=== PATIENT | male | born 1985 | race Caucasian/White ===

== ENCOUNTER 2017-08-18 05:12 | Day surgery (SDC) | payer BC, OTHER ==
[2017-08-16 08:42] VITALS: BP 128/83
[~2017-08-18] VITALS: Ht 193 cm; Wt 131.0 kg
[~2017-08-18 05:12] MED LIST: No meds per pt.
[2017-08-18] MEDS ORDERED: LACTATED RINGERS 1,000 ML IV SCH (05:53)
[2017-08-18 05:54] VITALS: BP 128/83
[2017-08-18] MEDS ORDERED: LIDOCAINE-MPF 1%, 2ML ONE (05:59)
[2017-08-18] MEDS ORDERED: LIDOCAINE-MPF 1%, 2ML INFIL ONE (06:00)
[2017-08-18] MEDS ORDERED: FENTANYL PF 250 MCG/5ML ONE (06:17)
[2017-08-18] MEDS ORDERED: MIDAZOLAM 1 MG/ML, 2ML ONE (06:17)
[2017-08-18] MEDS ORDERED: LIDOCAINE/MPF 2%-EPI 1:200K, 20 ML ONE (06:18)
[2017-08-18] MEDS ORDERED: ROPIvacaine/PF 0.5%, 30 ML ONE (06:19)
[2017-08-18] MEDS ORDERED: GABAPENTIN 300 MG CAPSULE PO ONE (07:00)
[2017-08-18] MEDS ORDERED: ACETAMINOPHEN 500 MG TABLET PO ONE (07:00)
[2017-08-18] MEDS ORDERED: hydrALAzine 20 MG/ML, 1ML IV PRN (08:00)
[2017-08-18] MEDS ORDERED: PROMETHAZINE 25 MG/ML, 1ML IV PRN (08:00)
[2017-08-18] MEDS ORDERED: FENTANYL PF 100 MCG/2ML IV PRN (08:00)
[2017-08-18] MEDS ORDERED: OXYcodone 5 MG/5 ML ORAL.SOL UDC PO PRN (08:00)
[2017-08-18] MEDS ORDERED: morphine SULFATE 10 MG/ML, 1ML IV PRN (08:00)
[2017-08-18] MEDS ORDERED: ALBUTEROL SULFATE 2.5 MG/3 ML NPPB PRN (08:00)
[2017-08-18] MEDS ORDERED: LORazepam 2 MG/ML, 1ML IVPush PRN (08:00)
[2017-08-18] MEDS ORDERED: LABETALOL 5MG/ML, 20ML IV PRN (08:00)
[2017-08-18] MEDS ORDERED: HYDROmorphone 1 MG/ML, 1ML IV PRN (08:00)
[2017-08-18] MEDS ORDERED: MEPERIDINE/PF 25MG/0.5ML IVPush PRN (08:00)
[2017-08-18] MEDS ORDERED: PROMETHAZINE 12.5 MG SUPP PR PRN (08:00)
[2017-08-18] MEDS ORDERED: OXYcodone 5 MG/5 ML ORAL.SOL UDC ONE (09:00)
[2017-08-18] MEDS ORDERED: PROPOFOL 10 MG/ML, 20ML ONE (16:50)
[2017-08-18] MEDS ORDERED: ONDANSETRON 2MG/ML, 2ML ONE (16:50)
[2017-08-18] MEDS ORDERED: DEXAMETHASONE 4 MG/ML, 1ML ONE (16:50)
[2017-08-18] MEDS ORDERED: CEFAZOLIN 1,000 MG ONE (16:50)
== END 2017-08-18 10:40 ==
LOC: OUT 05:12
PROVIDERS: ATTEND Orthopaedic Surgery
DX: S83.512A Sprain of anterior cruciate ligament of left knee, initial encounter (principal); S83.242A Other tear of medial meniscus, current injury, left knee, initial encounter; S83.282A Other tear of lateral meniscus, current injury, left knee, initial encounter; M94.262 Chondromalacia, left knee; X58.XXXA Exposure to other specified factors, initial encounter; Y93.89 Activity, other specified; Y92.89 Other specified places as the place of occurrence of the external cause; Y99.8 Other external cause status
CPT/HCPCS: 29880; 29888; C1713; C1762; J0690; J1100; J2250; J2405; J2704; J2795; J3010; J3490; J7120